=== PATIENT | female | born 1950 | race Caucasian/White ===

== ENCOUNTER 2018-03-08 16:34 | Emergency (ER) | payer MEDICARE ==
[~2018-03-08] VITALS: Ht 157.5 cm; Wt 75.0 kg
[~2018-03-08 16:34] MED LIST: ACIPHEX20 MG OR; ADVAIR DISK1; ADVAIR DISK1 INH; ADVAIR DISK2 IN; ALENDRONATE70 MG PO; AMLODIPINE2.5 MG PO; AMOXICILLIN/CL875 MG OR; AMOXICILLIN500 MG PO; AUGMENTIN875TAB OR; AUGMENTIN875TAB PO; BACLOFEN10 MG PO; BL ADULT ASA81 MG OR; BREO ELLIPTA 101 INH IN; CIPRODEX1 ML AD; CIPROFLOXACN500 MG PO; DIFLUCAN150 MG PO; DOCUSATE SOD100 M2 PO; DYMISTA1 SPR; FLONASE NASAL50 MCG; FLORASTOR250 M1 PO; FLUARIX QUADRIV1 INJ IM; FLUZONE SPLT1 M1 IM; FOSINOPRIL40 MG OR; FOSINOPRIL40 MG PO; HALOBETASOL PR0.05 % EX; HYDROCHLOROT25 MG PO; KEFLEX500 MG PO; LEVOTHYROXIN100 MCG OR; LEVOTHYROXIN88 MC1 PO; MEDDOSEPAK PO; METAXALONE800 MG OR; MIRALAX3350 NF PO; MUCINEX600 MG PO; NAPROXEN SOD220 M3 PO; NYSTATIN100000 M1 PO; OMEPRAZOLE20 MG PO; OMNICEF300 MG OR; PNEUMOVAX 23 IM; PREDNISONE10 MG PO; PRILOSEC20 MG PO; PROAIR HFA IN; RED YEAST600 MG PO; ROBITUSSIN AC10 ML PO; SINGULAIR PO; SINGULAIR10 MG OR; SINGULAIR10 MG PO; SPIRIVA RE1.25 MCG/A IN; VENTOLIN HFA IN; VIACTIV MULT OR; ZITHROMAX500 MG PO; ZYRTEC ALLGY10 M1 OR
[2018-03-08 17:23] LABS: HEMATOCRIT 41.9 % (37.0-47.0); HEMOGLOBIN 14.2 g/dl (12.0-16.0); IMMATURE GRANULOCYTES 0.4 % (0.0-5.0); MEAN CELL VOLUME 91.5 fL CALC (80.0-100.0); MEAN CORPUSCULAR HGB CONC 33.9 g/L CALC (32.0-36.0); NEUT# 6.68 thou/uL (2.00-7.15); RED BLOOD COUNT 4.58 mill/uL (4.20-5.60); RED CELL DISTRI WIDTH 12.8 % (11.5-15.5)
[2018-03-08 17:38] LABS: ANION GAP 16 (6-22 (CALC)); BUN 23 mg/dL (8-23); BUN/CREATININE RATIO 30 (12-20 (CALC)); CARBON DIOXIDE 28 mmol/l (22-30); CHLORIDE 98 mmol/l (95-108); CREATININE 0.8 mg/dL (0.5-1.0); GFR > 60 ML/MIN (>=60 (CALC)); GFR FOR AFR.AMER. > 60 ML/MIN (>=60 (CALC)); SODIUM 138 mmol/l (137-146)
[2018-03-08 17:53] VITALS: BP 163/92
[2018-03-08] MEDS ORDERED: PREDNISONE20 MG PO (17:58)
== END 2018-03-08 18:11 | disposition home or self-care (01) ==
LOC: ED 16:34
PROVIDERS: Family Medicine
DX: R51 Headache (principal); R20.0 Anesthesia of skin; I10 Essential (primary) hypertension

== ENCOUNTER → 2018-03-23 | Outpatient (REF) ==
[~2018-03-23] MED LIST changes: +PREDNISONE20 MG PO
== END | disposition home or self-care (01) | DRG 305 ==
LOC: LAB 09:46
PROVIDERS: ATTEND Internal Medicine
DX: I10 Essential (primary) hypertension (principal); M54.2 Cervicalgia; R51 Headache; R70.0 Elevated erythrocyte sedimentation rate

== ENCOUNTER → 2018-03-31 | Outpatient (REF) | payer MEDICARE | END | disposition home or self-care (01) | LOC: DI 11:45 | PROVIDERS: ATTEND Internal Medicine | DX: M54.2 Cervicalgia (principal); M50.320 Other cervical disc degeneration, mid-cervical region, unspecified level ==

== ENCOUNTER → 2018-04-29 | Outpatient (REF) | END | disposition home or self-care (01) | DRG 645 | LOC: LAB 08:43 | PROVIDERS: ATTEND Internal Medicine | DX: E03.9 Hypothyroidism, unspecified (principal); G47.30 Sleep apnea, unspecified; I10 Essential (primary) hypertension; M54.2 Cervicalgia; R70.0 Elevated erythrocyte sedimentation rate ==

== ENCOUNTER 2018-11-06 12:48 | Observation (INO) | payer MEDICARE ==
[~2018-11-06] VITALS: Ht 157.5 cm; Wt 76.2 kg
--- NOTE | 2018-11-06 12:48 | NUR ---
PATIENT TO ED VIA EMS. EMS GAVE 234 MG OF ASPIRIN, 1 SL NITRO, AND 4 MG OF ZOFRAN IV. PATIENT ALERT AND ORIENTED X4.
--- NOTE | 2018-11-06 13:20 | NUR ---
PATIENT REPORTS HAVING HISTORY OF GI ULCERS AND POLYPS IN COLON REMOVED DURING COLONOSCOPY. INFORMED. PLAVIX HELD AT THIS TIME PER MD VERBAL ORDER.
[2018-11-06] MEDS ORDERED: LISINOPRIL2.5 MG PO (13:24)
[2018-11-06] MEDS ORDERED: PREDNISONE20 MG PO (13:25)
[2018-11-06] MEDS ORDERED: FUROSEMIDE20 MG PO (13:26)
[2018-11-06] MEDS ORDERED: ALLERGY RE50 MCG/ACT (13:27)
[2018-11-06 13:28] LABS: HEMATOCRIT 39.7 % (37.0-47.0); HEMOGLOBIN 13.2 g/dl (12.0-16.0); IMMATURE GRANULOCYTES 1.3 % (0.0-5.0); MEAN CELL VOLUME 92.3 fL CALC (80.0-100.0); MEAN CORPUSCULAR HGB 30.7 pG CALC (26.0-32.0); MEAN CORPUSCULAR HGB CONC 33.2 g/L CALC (32.0-36.0); NEUT# 13.57 thou/uL (2.00-7.15); RED BLOOD COUNT 4.3 mill/uL (4.20-5.60); RED CELL DISTRI WIDTH 13.7 % (11.5-15.5)
[2018-11-06] MEDS ORDERED: OMEPRAZOLE10 MG PO (13:29)
[2018-11-06 13:33] LABS: ALBUMIN 4.1 g/dL (3.2-5.0); ALKALINE PHOSPHATASE 100 u/l (38-126); AMYLASE 177 u/l (30-110); ANION GAP 16 (6-22 (CALC)); BILIRUBIN, TOTAL 0.6 mg/dL (0.0-1.4); BUN 29 mg/dL (8-23); BUN/CREATININE RATIO 35 (12-20 (CALC)); CARBON DIOXIDE 25 mmol/l (22-30); CHLORIDE 101 mmol/l (95-108); CREATININE 0.8 mg/dL (0.5-1.0); GFR > 60 ML/MIN (>=60 (CALC)); GFR FOR AFR.AMER. > 60 ML/MIN (>=60 (CALC)); POTASSIUM 4.1 mmol/l (3.5-5.1); SODIUM 137 mmol/l (137-146); TOTAL PROTEIN 6.8 g/dL (6.3-8.2)
[2018-11-06] MEDS ORDERED: PROAIR HFA108 MCG/AC IN (13:33)
[2018-11-06 13:35] LABS: SGOT/AST 282 u/l (9-36)
--- NOTE | 2018-11-06 13:35 | NUR ---
PATIENT REPORTS CHEST, EPIGASTIC PRESSURE RATES 2/10 AFTER SL NITRO. BOWELS SOUNDS ACTIVE, TENDERNESS NOTED TO EPIGASTRIC AND RUQ UPON PALPATION. REPORTS SMALL BM TODAY. COARSE COUGH NOTED, REPORTS PRODUCTIVE COUGH X4 DAYS. LUNG SOUNDS CLEAR. AT BEDSIDE. WILL CONTINUE TO MONITOR.
--- NOTE | 2018-11-06 13:36 | NUR ---
REPORT GIVEN TO YUDI HOLLIS.
[2018-11-06 13:39] LABS: ACT PARTIAL THROMBO TIME 22.6 SECONDS (20.0-32.5); PROTHROMBIN TIME 10.5 SECONDS (9.0-12.5)
[2018-11-06 13:47] LABS: LIPASE 2090 u/l (23-300)
--- NOTE | 2018-11-06 14:15 | NUR ---
AT BEDSIDE TO DISCUSS FURTHER TESTING AND POSSIBLE ADMIT.
--- NOTE | 2018-11-06 15:00 | NUR ---
PATIENT AMBULATES TO AND FROM BATHROOM WITH STEADY GAIT.
--- NOTE | 2018-11-06 15:30 | NUR ---
PATIENT RESETING ON STRETCHER NO CHANGE IN STATUS. UPDATED ON ADMIT. VERBAL UNDERSTANDING. WILL CONTINUE TO MONITOR.
--- NOTE | 2018-11-06 15:45 | NUR ---
REPORT CALLED TO YUDI MARTIN.
--- NOTE | 2018-11-06 16:08 | NUR ---
PATIENT TRANSPORTED TO [facility] VIA WHEELCHAIR. YUDI MARTIN AWARE OF PATIENT ARRIVAL TO ROOM. CARE RELINQUISHED.
[2018-11-06 16:12] VITALS: BP 154/62
--- NOTE | 2018-11-06 17:01 | NUR ---
PT HAD COME FROM ER VIA WHEELCHAIR. ASSESSMENT DONE. PT IS A&O X3. PT DENIES PAIN. PT STATED JUST DISCOMFORT IN BODY. PT DENIES PAIN MEDICATION AT THIS TIME. IVF INFUING WELL. RESPS EVEN AND UNLABORED. SAFETY PRECAUTIONS REINFORCED AND CALL LIGHT IN REACH.
--- NOTE | 2018-11-06 19:12 | NUR ---
PT IS IN HIGH FOWLERS IN BED W/TV ON. PT IS AWAKE AND COMMUNICATING. DENIES PAIN/N/V AT THIS TIME, REPORTS JUST "FEELING TIRED." PROVIDED ICE CHIPS/REQUEST, DENIES ANY OTHER NEEDS AT THIS TIME. CALL LIGHT IN HAND AND PT ENCOURAGED TO CALL NEEDS ARISE.
--- NOTE | 2018-11-06 20:00 | NUR ---
PT CALLED TO REPORT TO OTHER NURSE ON FLOOR TASKING THAT HER IV WAS SWELLING. SITE REMOVED FROM LAC/SITE MODERATELY EDEMATOUS, WARM PACKS APPLIED. DENIES PAIN IN THE AREA. FAMILY/VISITORS AT BEDSIDE. WILL FOLLOW-UP W/NEW IV SITE ACCESS.
[2018-11-06 20:04] VITALS: BP 150/59
--- NOTE | 2018-11-06 20:55 | NUR ---
PT ASSESSMENT COMPLETED AT THIS TIME AND POC DISCUSSED W/PT. FAMILY AT BEDSIDE DISCUSSING PT POC AND ASKING QUESTIONS W/PT. PT ASKED IF I COULD COME BACK IN A FEW MINUTES WHEN VISITORS LEAVE TO OBTAIN NEW IV ACCESS. WILL FOLLOW-UP FOR IV ACCESS. PT DENIES PAIN/N/V AT THIS TIME.
--- NOTE | 2018-11-06 21:15 | NUR ---
NEW IV SITE ACCESSED AND IVF RUNNING @150CCNS ORDERS PROVIDE. PT TOLERATED WELL. DENIES ANY OTHER NEEDS AT THIS TIME.
--- NOTE | 2018-11-07 | NUR ---
IVF REPLENISHED AT THIS TIME. CPAP IN PLACE, PT DENIES ANY NEEDS AT THIS TIME. CALL LIGHT AT SIDE AND PT ENCOURAGED TO CALL IF SHE NEEDS ANY ASSISTANCE.
--- NOTE | 2018-11-07 03:10 | NUR ---
PT CALLED ASKING FOR ANOTHER BLANKET/REPORTS BEING COLD. V/S OBTAINED AT THIS TIME/AFEBRILE. ASSISTED PT TO RESTROOM AND BACK TO BED. IVF RUNNING TO 22RFA/SITE APPEARS HEALTHY, PT DENIES PAIN AT SITE. PT DENIES PAIN/N/V AT THIS TIME. AND DENIES ANY OTHER NEEDS. NO S/O DISTRESS. PT ENCOURAGED TO CALL NEEDS ARISE.
[2018-11-07 04:05] VITALS: BP 154/77
[2018-11-07 05:09] LABS: HEMATOCRIT 36.4 % (37.0-47.0); HEMOGLOBIN 12.2 g/dl (12.0-16.0); IMMATURE GRANULOCYTES 0.8 % (0.0-5.0); MEAN CELL VOLUME 92.9 fL CALC (80.0-100.0); MEAN CORPUSCULAR HGB 31.1 pG CALC (26.0-32.0); MEAN CORPUSCULAR HGB CONC 33.5 g/L CALC (32.0-36.0); NEUT# 8.21 thou/uL (2.00-7.15); RED BLOOD COUNT 3.92 mill/uL (4.20-5.60)
--- NOTE | 2018-11-07 06:20 | NUR ---
PT ASSISTED TO RESTROOM AND BACK TO BED. IVF REPLENISHED AT THIS TIME. PT ASKED TO CLEAN UP IN RESTROOM/SUPPLIES PROVIDE. DENIES PAIN OR NAUSEA AT THIS TIME.
[2018-11-07 06:44] LABS: ALBUMIN 3.5 g/dL (3.2-5.0); ALKALINE PHOSPHATASE 99 u/l (38-126); ANION GAP 10 (6-22 (CALC)); BILIRUBIN, TOTAL 0.6 mg/dL (0.0-1.4); BUN 18 mg/dL (8-23); BUN/CREATININE RATIO 26 (12-20 (CALC)); CARBON DIOXIDE 27 mmol/l (22-30); CHLORIDE 107 mmol/l (95-108); CREATININE 0.7 mg/dL (0.5-1.0); GFR > 60 ML/MIN (>=60 (CALC)); GFR FOR AFR.AMER. > 60 ML/MIN (>=60 (CALC)); LIPASE 105 u/l (23-300); SGOT/AST 115 u/l (9-36); SODIUM 140 mmol/l (137-146); TOTAL PROTEIN 6.2 g/dL (6.3-8.2)
[2018-11-07 07:36] VITALS: BP 181/83
--- NOTE | 2018-11-07 08:00 | NUR ---
PT SEEN AWAKE, ALERT, ORIENTED X 3. LUNGS CLEAR, RA. NO COMPLAINT OF ABDOMINAL PAIN, TOLERATING CLEAR LIQUIDS WELL. PT DOES SAY THAT SHE HAS HEADACHE, WHICH CAME WHEN SHE STARTED STEROIDS FOR TEMPORAL ARTERITIS.
[2018-11-07 11:09] VITALS: BP 181/83
--- NOTE | 2018-11-07 12:04 | NUR ---
PT SEEN BY DR POTTS TODAY, NO COMPLAINT OF PAIN ABDOMINALLY. DIET ADVANCED. POSSIBLE DISCHARGE LATER TODAY IF TOLERATES LUNCH WELL.
--- NOTE | 2018-11-07 13:32 | NUR ---
DR POTTS RETURNS TO FIND PT HAS TOLERATED LUNCH WELL. SHE FEELS FULL, BOTH OTHERWISE NO NAUSEA OR VOMITING.
--- NOTE | 2018-11-07 14:37 | NUR ---
DR POTTS HAS DISCHARGED PT TO HOME. PT VERBALIZED UNDERSTANDING OF DC INSTRUCTIONS AND WAS TAKEN TO LOBBY IN WHEELCHAIR BY VOLUNTEER.
== END 2018-11-07 14:12 | disposition home or self-care (01) ==
LOC: ED 12:48 → ED-I 15:00 → ED 15:12 → MS2 15:13
PROVIDERS: Internal Medicine; ADMIT Internal Medicine; ATTEND Internal Medicine
DX: K85.90 Acute pancreatitis without necrosis or infection, unspecified (principal); I10 Essential (primary) hypertension; K21.9 Gastro-esophageal reflux disease without esophagitis; R73.9 Hyperglycemia, unspecified; E78.5 Hyperlipidemia, unspecified; K44.9 Diaphragmatic hernia without obstruction or gangrene; J44.9 Chronic obstructive pulmonary disease, unspecified; E03.9 Hypothyroidism, unspecified; Z79.52 Long term (current) use of systemic steroids; R07.89 Other chest pain
CPT/HCPCS: J1650; Q9967

== ENCOUNTER 2019-12-12 07:10 | Day surgery (SDC) | payer MEDICARE ==
[~2019-12-12 07:10] MED LIST changes: +ALLERGY RE50 MCG/ACT; +ASPIRIN81 MG PO; +AZELASTINE HCL0.15 % IN; +B COMPLE2 PO; +BREO ELLIPTA1 INH IN; +CETIRIZINE10 MG PO; +COQ-10100 M1 PO; +D31000 UNIT PO; +FUROSEMIDE20 MG PO; +LISINOPRIL2.5 MG PO; +LISINOPRIL20 MG PO; +MONTELUKAST SOD10 MG PO; +OMEPRAZOLE10 MG PO; +PRAVASTATIN SOD20 MG PO; +PROAIR HFA108 MCG/AC IN
[2019-12-12 09:08] VITALS: BP 166/70
== END 2019-12-12 09:55 | disposition home or self-care (01) ==
LOC: ENDO 07:10 → ORM 11:30
PROVIDERS: ATTEND Surgery
PROC: 0DJD8ZZ Inspection of Lower Intestinal Tract, Via Natural or Artificial Opening Endoscopic (ICD-10-PCS; principal; 2019-12-12)
DX: Z12.11 Encounter for screening for malignant neoplasm of colon (principal); K57.30 Diverticulosis of large intestine without perforation or abscess without bleeding; K64.8 Other hemorrhoids; I10 Essential (primary) hypertension; Z20.828 Contact with and (suspected) exposure to other viral communicable diseases

== ENCOUNTER 2021-04-27 10:31 | Emergency (ER) | payer MEDICARE ==
[~2021-04-27] VITALS: Ht 157.5 cm; Wt 80.0 kg
[2021-04-27 10:56] VITALS: BP 163/80
[2021-04-27 11:01] VITALS: BP 161/74
[2021-04-27 11:16] VITALS: BP 144/77
[2021-04-27 11:30] VITALS: BP 151/75
[2021-04-27] MEDS ORDERED: MEDDOSEPAK PO (11:31)
[2021-04-27] MEDS ORDERED: ULTRAM50 MG PO (11:31)
[2021-04-27 11:46] VITALS: BP 154/74
[2021-04-27 11:56] VITALS: BP 154/74
== END 2021-04-27 11:56 | disposition home or self-care (01) ==
LOC: ED 10:31
DX: M19.072 Primary osteoarthritis, left ankle and foot (principal); I10 Essential (primary) hypertension; E78.00 Pure hypercholesterolemia, unspecified

== ENCOUNTER 2022-01-05 13:08 | Emergency (ER) | payer MEDICARE ==
[2022-01-05] VITALS (15 sets, daily range): BP systolic 107–155; BP diastolic 50–77
[~2022-01-05] VITALS: Ht 157.5 cm; Wt 74.8 kg
[~2022-01-05 13:08] MED LIST changes: +ULTRAM50 MG PO
[2022-01-05 13:50] LABS: HEMATOCRIT 39.1 % (37.0-47.0); HEMOGLOBIN 13.1 g/dl (12.0-16.0); IMMATURE GRANULOCYTES 0.3 % (0.0-5.0); MEAN CELL VOLUME 91.6 fL CALC (80.0-100.0); MEAN CORPUSCULAR HGB 30.7 pG CALC (26.0-32.0); MEAN CORPUSCULAR HGB CONC 33.5 g/dL CAL (32.0-36.0); NEUT# 7.43 thou/uL (2.00-7.15); RED BLOOD COUNT 4.27 mill/uL (4.20-5.60); RED CELL DISTRI WIDTH 12.8 % (11.5-15.5)
[2022-01-05 14:08] LABS: ALBUMIN 4.3 g/dL (3.2-5.0); ALKALINE PHOSPHATASE 106 u/l (38-126); ANION GAP 11 (6-22 (CALC)); BUN 20 mg/dL (8-23); BUN/CREATININE RATIO 23 (12-20 (CALC)); CARBON DIOXIDE 29 mmol/l (22-30); CHLORIDE 102 mmol/l (95-108); CREATININE 0.9 mg/dL (0.5-1.0); GFR FOR AFR.AMER. > 60 ML/MIN (>=60 (CALC)); GFR OTHER RACES > 60 ML/MIN (>=60 (CALC)); POTASSIUM 3.8 mmol/l (3.5-5.1); SODIUM 138 mmol/l (137-146); TOTAL PROTEIN 7.5 g/dL (6.3-8.2)
[2022-01-05 14:10] LABS: BILIRUBIN, TOTAL 0.4 mg/dL (0.0-1.4); SGOT/AST 73 u/l (9-36)
== END 2022-01-05 18:55 | disposition home or self-care (01) ==
LOC: ED 13:08
PROVIDERS: Family Medicine
DX: R07.9 Chest pain, unspecified (principal); I10 Essential (primary) hypertension; E78.00 Pure hypercholesterolemia, unspecified
CPT/HCPCS: Q9967